=== PATIENT | male | born 1995 | race Caucasian/White ===

== ENCOUNTER 2018-04-16 10:42 | Emergency (ER) | payer OTHER ==
[~2018-04-16] VITALS: Ht 182.9 cm; Wt 73.0 kg
[2018-04-16] MEDS ORDERED: MAALOX/HYOSCYAMINE/LIDOCAINE 45 ML BTL PO ONE (11:30)
[2018-04-16] MEDS ORDERED: MAALOX/HYOSCYAMINE/LIDOCAINE 45 ML BTL ONE (11:33)
[2018-04-16 12:04] VITALS: BP 127/84
== END 2018-04-16 12:26 | disposition home or self-care (01) ==
LOC: ED 11:41
DX: F41.1 Generalized anxiety disorder (principal); R11.10 Vomiting, unspecified
CPT/HCPCS: 71046; 93005; 99284